=== PATIENT | male | born 1980 | race Two or more races ===

== ENCOUNTER 2024-09-30 11:29 | Emergency (ER) | payer MEDICAID, SELFPAY ==
[2024-09-30 11:31] VITALS: BMI 32.1
[2024-09-30 13:00] VITALS: BP 131/64; PULSE 71; RESP 16; TEMP 37; O2SAT 98
--- NOTE | 2024-09-30 13:10 | PD.EDUPEX ---
Upper Extremity Injury RME/HPI General Chief Complaint: Extremity Injury, Upper Stated Complaint: FU on stitches placed yesterday in [facility]. Time Seen by Provider: 09/30/24 11:51 Arrival date/time: 09/30/24 11:29 RME / HPI RME / HPI narrative: 43-year-old male patient came in for evaluation regarding wound check. Patient sustained injury to the left index finger, was seen in [place] yesterday, repair and suturing was done and was placed on a splint. Patient came in because there is some bleeding noted. Denies any other complaint. Patient is currently taking antibiotic and pain medication. Was advised to follow-up with hand specialist from [place]. Related Data Allergies Allergy/AdvReac Type Severity Reaction Status Date / Time No Known Allergies Allergy Verified 02/18/24 05:35 Review of Systems Review of Systems Narrative Review of Systems: Review of system reviewed and within normal limits except mentioned in HPI ED Exam Narrative Physical exam: VITAL SIGNS: Reviewed. GENERAL APPEARANCE: Alert and interactive, follows commands, no acute distress, HEAD AND FACE: Non-traumatic. ENT: PERRL, pink conjunctivitis, eyelid no trauma, Mucous membrane moist. NECK: Supple, nontender, no nuchal rigidity. CHEST: No tenderness, no crepitus, no paradoxical movement, no retractions. LUNGS: Clear, well ventilated, symmetric, no rales, no wheezing, no ronchi, no stridor, good breath sounds bilaterally. HEART: Regular rate, regular rhythm, no murmur, no gallops. ABDOMEN: Soft, positive bowel sounds, nondistended, no guarding, nontender, no rebound, no masses, RECTAL: Deferred. GENITAL: Deferred. NEUROLOGICAL: Gross motor function intact sensory function intact, Appropriate for age. MUSCULOSKELETAL: low back nontender, full range of motion. EXTREMITIES: Left index finger in a splint, I remove the splint and changed the dressing, wound is slightly gaping, no active bleeding noted, no sign of infection noted, nontender, full range of motion. SKIN: Color pink, dry, no rash, no lacerations, no abrasions, no contusions. LYMPHATICS: Deferred. Course Quality Measures none Vital Signs Vital signs: Vital Signs Temperature 98.6 F 09/30/24 13:00 Pulse Rate 71 09/30/24 13:00 Respiratory Rate 16 09/30/24 13:00 Blood Pressure 131/64 H 09/30/24 13:00 Pulse Oximetry (%) 98 09/30/24 13:00 Oxygen Delivery Method Room Air 09/30/24 13:00 Extremity Injury MDM Narrative MDM Narrative:: 43-year-old male patient came in for evaluation regarding wound check. Patient sustained injury to the left index finger, was seen in [place] yesterday, repair and suturing was done and was placed on a splint. Patient came in because there is some bleeding noted. Denies any other complaint. Patient is currently taking antibiotic and pain medication. Was advised to follow-up with hand specialist from [place]. Wound dressing done by me, no active bleeding noted, patient was advised to continue dressing every other day and follow-up with specialist as instructed. Patient was also advised to have the sutures removed in 10 days. Continue using the splint for at least 4 weeks. Or until seen by hand specialist. Patient appears nontoxic and hemodynamically stable. Patient discharged home and instructed to follow-up with primary care provider in 24 to 48 hours. Instructed to return to the emergency department immediately if worsening of symptoms Patient data External records reviewed:: None Clinical information provided by:: none Social determinants that could affect healthcare access:: none Patient has the following chronic illnesses:: None How is presenting disease/condition affected by chronic disease/condition?: no chronic disease Evaluation data The following diagnostics were reviewed and interpreted by me:: other (specify) Lab and/or radiology exams considered but not ordered:: None Interpretation Summary: None Medications / Prescriptions Medications or Prescriptions considered but not ordered:: None Medication administrations:: none Consultations Consultation(s) initiated? (list below): No Diagnosis Upper Extremity Injury Differential Diagnosis: other (Wound check, left index finger laceration) Most likely diagnosis given after review of the tests above:: Wound check, status post crush injury left finger status post repair Admission Indicated Admission indicated?: not indicated Admission Request Was there a request for admission?: No Disposition Plan Disposition Plan: Discharge Discharge Attestation Discharge Attestation: The patient was given an opportunity to ask questions and understood the discharge instructions. Discharge instructions specifically effects, indications for sooner follow up or return to the emergency department, and the expected course of current diagnosis. Patient condition: Stable Discharge Plan Plan Patient Disposition: HOME (Self Care) Disposition Comment: Stable Prescriptions/Referrals Referrals: No Primary/Family,Physician [Primary Care Provider] - In 1 week Problem List Clinical Impression: Encounter for wound re-check, Crush injury to finger Patient/Caregiver Discharge Instructions Discharge Activity: activity as tolerated Education Materials: ED Wound Care Additional Instructions: Thank you for the opportunity for serving you today. You are stable for discharged . You are advised to: Follow-up with your PCP in 1 to 2 days Return to ED for worsening of symptoms Increase oral fluids dressing as instructed Print Language: [place] Stand Alone Forms: Nathaly Award Info., Patient Portal Info Letter
== END 2024-09-30 14:09 | disposition home or self-care (01) ==
PROVIDERS: Emergency Provider Emergency Medicine
DX: S67.191A Crushing injury of left index finger, initial encounter (principal); X58.XXXA Exposure to other specified factors, initial encounter
CPT/HCPCS: 99281

== ENCOUNTER → 2024-10-27 | Outpatient (CLI) | payer MEDICAID, SELFPAY ==
--- NOTE | 2024-10-27 | XR_ITS ---
Examination: Hand, left 3 views Technique: Hand AP, oblique, lateral 3 views Date and time of exam: October 27, 2024 1251 hours INDICATIONS: Hand pain months FINDINGS: Significant osteopenia No fracture Minimal osteoarthritis distal interphalangeal joints second through fifth digits No erosive arthritis No cortical bone destruction IMPRESSION: Minimal osteoarthritis
== END | disposition home or self-care (01) ==
LOC: CDIM 11:47
PROVIDERS: PCP Nurse Practitioner Gerontology; Referring Provider Nurse Practitioner Gerontology; Visit Provider Nurse Practitioner Gerontology
DX: M19.042 Primary osteoarthritis, left hand (principal)
CPT/HCPCS: 73130